=== PATIENT | male | born 1985 | race Hispanic/Latino ===

== ENCOUNTER 2018-07-27 19:34 | Emergency (ER) | payer SELFPAY ==
--- NOTE | 2018-07-27 20:28 | RAD REPORT ---
EXAM DESCRIPTION: Craig Pina (2 Views)07/27/2018 8:20 pm CLINICAL HISTORY: Chest pain COMPARISON: none FINDINGS: The lungs appear clear of acute infiltrate. The heart is normal size IMPRESSION: No acute abnormalities displayed
--- NOTE | 2018-07-27 21:30 | ER ---
Nurse's Notes [facility] Name: Philippe Bailey Age: 32 yrs Sex: Male : 1985 Arrival Date: 07/27/2018 Time: 19:35 Bed 23 Private MD: Diagnosis: Acute bronchitis Presentation: 07/27 19:39 Presenting complaint: Patient states: Left sided chest pain for the past 2 hours that aj1 does not radiate, reports that the pain is worse when he takes a deep breath, starts that the pain started shortly after he finished eating. Patient reports that he had a cough a week ago but now the cough is gone. Reports SOB. Denies palpitations, nausea, light-headedness. Transition of care: patient was not received from another setting of care. Onset of symptoms was July 27, 2018 at 17:45. Risk Assessment: Do you want to hurt yourself or someone else? Patient reports no desire to harm self or others. Initial Sepsis Screen: Does the patient meet any 2 criteria? No. Patient's initial sepsis screen is negative. Does the patient have a suspected source of infection? No. Patient's initial sepsis screen is negative. Care prior to arrival: None. 19:39 Method Of Arrival: Ambulatory aj1 19:39 Acuity: ARTHUR 3 aj1 Triage Assessment: 19:43 General: Appears in no apparent distress. uncomfortable, Behavior is calm, cooperative, aj1 appropriate for age. Pain: Complains of pain in anterior aspect of left upper chest Pain does not radiate. Pain currently is 9 out of 10 on a pain scale. Pain began 2 hours ago. Aggravated by deep breathing. EENT: No signs and/or symptoms were reported regarding the EENT system. Neuro: Level of Consciousness is awake, alert, obeys commands, Oriented to person, place, time, situation. Cardiovascular: Reports chest pain, shortness of breath, Patient's skin is warm and dry. Respiratory: Airway is patent Respiratory effort is even, unlabored, Respiratory pattern is regular, symmetrical. Historical: - Allergies: 19:43 PENICILLINS; aj1 - Home Meds: 19:43 None [Active]; aj1 - PMHx: 19:43 None; aj1 - PSHx: 19:43 hand surgery; aj1 - Immunization history:: Flu vaccine is not up to date. - Social history:: Smoking status: Patient uses tobacco products, smokes one pack cigarettes per day. - Ebola Screening: : Patient denies travel to an Ebola-affected area in the 21 days before illness onset. Screenin:53 Abuse screen: Denies threats or abuse. Nutritional screening: No deficits noted. la1 Tuberculosis screening: No symptoms or risk factors identified. Fall Risk None identified. Assessment: 19:52 General: Appears in no apparent distress. Behavior is calm, cooperative. Pain: la1 Complains of pain in anterior aspect of left upper chest. Neuro: Level of Consciousness is awake, alert, obeys commands, Oriented to person, place, time, situation. Cardiovascular: Capillary refill < 3 seconds Patient's skin is warm and dry. Cardiovascular: Heart tones S1 S2 present. Respiratory: Airway is patent Respiratory effort is even, unlabored, Respiratory pattern is regular, symmetrical, Breath sounds are clear bilaterally. GI: No signs and/or symptoms were reported involving the gastrointestinal system. : No signs and/or symptoms were reported regarding the genitourinary system. 20:55 Reassessment: Patient appears in no apparent distress at this time. No changes from la1 previously documented assessment. Patient and/or family updated on plan of care and expected duration. Pain level reassessed. 21:42 Reassessment: Patient appears in no apparent distress at this time. No changes from la1 previously documented assessment. Patient and/or family updated on plan of care and expected duration. Pain level reassessed. Vital Signs: 19:43 BP 131 / 93; Pulse 95; Resp 18; Temp 98.5(TE); Pulse Ox 98% on R/A; Weight 72.57 kg aj1 (R); Height 5 ft. 9 in. (175.26 cm) (R); Pain 9/10; 21:42 BP 144 / 74; Pulse 84; Resp 16; Pulse Ox 98% on R/A; la1 19:43 Body Mass Index 23.63 (72.57 kg, 175.26 cm) aj1 ED Course: 19:35 Patient arrived in ED. am2 19:42 Kevin Ramos, RN is Primary Nurse. la1 19:42 Triage completed. aj1 19:43 Arm band placed on Patient placed in an exam room. aj1 19:53 No provider procedures requiring assistance completed. Inserted saline lock: 18 gauge la1 in right forearm, using aseptic technique. Blood collected. Patient maintains SpO2 saturation greater than 95% on room air. 19:54 Reinaldo Shafer MD is Attending Physician. 19:54 Placed in gown. Bed in low position. Call light in reach. gambling monitor on. Pulse ox la1 on. NIBP on. 20:20 XRAY Chest Pa And Lat (2 Views) In Process Unspecified. EDMS 21:42 IV discontinued, intact, bleeding controlled, No redness/swelling at site. Pressure la1 dressing applied. Administered Medications: No medications were administered Outcome: 21:30 Discharge ordered by . 21:42 Discharged to home ambulatory. la1 21:42 Condition: stable 21:42 Discharge instructions given to patient, Instructed on discharge instructions, follow up and referral plans. medication usage. 21:42 Patient left the ED. la1 Signatures: Dispatcher [employer] EDMS Altagracia Mclean RN RN aj1 Kevin Ramos RN RN la1 Melonie Renee [facility] Reinaldo Shafer MD MD
--- NOTE | 2018-07-27 21:31 | EDPHYS ---
Physician Documentation [facility] Name: Philippe Bailey Age: 32 yrs Sex: Male : 1985 Arrival Date: 07/27/2018 Time: 19:35 Bed 23 Private MD: ED Physician Reinaldo Shafer HPI: 07/27 21:24 This 32 yrs old Male presents to ER via Ambulatory with complaints of Chest gs Pain. 21:24 The patient or guardian reports chest pain that is located primarily in the anterior gs chest wall. The pain does not radiate. Associated signs and symptoms: Pertinent negatives: diaphoresis, nausea, shortness of breath, syncope, vomiting. The chest pain is described as sharp. Duration: The patient or guardian reports multiple episodes, that are intermittent, that wax and wane, with no pattern. Modifying factors: the symptoms are aggravated by breathing, cough. Severity of pain: At its worst the pain was moderate in the emergency department the pain has improved mildly. The patient has experienced similar episodes in the past, a few times. Historical: - Allergies: 19:43 PENICILLINS; aj1 - Home Meds: 19:43 None [Active]; aj1 - PMHx: 19:43 None; aj1 - PSHx: 19:43 hand surgery; aj1 - Immunization history:: Flu vaccine is not up to date. - Social history:: Smoking status: Patient uses tobacco products, smokes one pack cigarettes per day. - Ebola Screening: : Patient denies travel to an Ebola-affected area in the 21 days before illness onset. ROS: 21:24 Respiratory: Positive for cough. gs 21:24 All other systems are negative. Exam: 21:24 Head/Face: Normocephalic, atraumatic. Eyes: Pupils equal round and reactive to light, gs extra-ocular motions intact. Lids and lashes normal. Conjunctiva and sclera are non-icteric and not injected. Cornea within normal limits. Periorbital areas with no swelling, redness, or edema. ENT: Nares patent. No nasal discharge, no septal abnormalities noted. Tympanic membranes are normal and external auditory canals are clear. Oropharynx with no redness, swelling, or masses, exudates, or evidence of obstruction, uvula midline. Mucous membranes moist. Neck: Trachea midline, no thyromegaly or masses palpated, and no cervical lymphadenopathy. Supple, full range of motion without nuchal rigidity, or vertebral point tenderness. No Meningismus. Chest/axilla: Normal chest wall appearance and motion. Nontender with no deformity. No lesions are appreciated. Cardiovascular: Regular rate and rhythm with a normal S1 and S2. No gallops, murmurs, or rubs. Normal PMI, no JVD. No pulse deficits. Respiratory: Lungs have equal breath sounds bilaterally, clear to auscultation and percussion. No rales, rhonchi or wheezes noted. No increased work of breathing, no retractions or nasal flaring. Abdomen/GI: Soft, non-tender, with normal bowel sounds. No distension or tympany. No guarding or rebound. No evidence of tenderness throughout. Back: No spinal tenderness. No costovertebral tenderness. Full range of motion. Skin: Warm, dry with normal turgor. Normal color with no rashes, no lesions, and no evidence of cellulitis. MS/ Extremity: Pulses equal, no cyanosis. Neurovascular intact. Full, normal range of motion. Neuro: Awake and alert, GCS 15, oriented to person, place, time, and situation. Cranial nerves II-XII grossly intact. Motor strength 5/5 in all extremities. Sensory grossly intact. Cerebellar exam normal. Normal gait. 21:24 Constitutional: The patient appears alert, awake. 21:24 ECG was reviewed by the Attending Physician. Vital Signs: 19:43 BP 131 / 93; Pulse 95; Resp 18; Temp 98.5(TE); Pulse Ox 98% on R/A; Weight 72.57 kg [facility] (R); Height 5 ft. 9 in. (175.26 cm) (R); Pain 9/10; 21:42 BP 144 / 74; Pulse 84; Resp 16; Pulse Ox 98% on R/A; la1 19:43 Body Mass Index 23.63 (72.57 kg, 175.26 cm) [facility] MDM: 21:22 Patient medically screened. gs 21:24 Differential diagnosis: chest wall pain, pleurisy, pneumonia. Data reviewed: vital gs signs, nurses notes. Counseling: I had a detailed discussion with the patient and/or guardian regarding: the historical points, exam findings, and any diagnostic results supporting the discharge/admit diagnosis, radiology results, the need for outpatient follow up. 21:31 Counseling: I had a detailed discussion with the patient and/or guardian regarding: the gs presence of at least one elevated blood pressure reading (>120/80) during this emergency department visit. Counseling: I had a detailed discussion with the patient and/or guardian regarding: smoking cessation. Special discussion: I have referred the patient to see his PCP for further evaluation of high blood pressure. 07/27 20:03 Order name: XRAY Chest Pa And Lat (2 Views); Complete Time: 20:30 gs 07/27 20:03 Order name: EKG - Nurse/Tech; Complete Time: 20:06 gs EC:24 Rate is 87 beats/min. Rhythm is regular. QRS [place] is Normal. QRS interval is normal. QT gs interval is normal. T waves are Normal. No ST changes noted. Clinical impression: Normal ECG. Interpreted by me. Administered Medications: No medications were administered Disposition: 07/27/18 21:30 Discharged to Home. Impression: Acute bronchitis. - Condition is Stable. - Discharge Instructions: Acute Bronchitis, Adult, Steps to Quit Smoking, Managing Your Hypertension. - Prescriptions for Prednisone 20 mg Oral Tablet - take 1 tablet by ORAL route once daily for 5 days; 5 tablet. Albuterol Sulfate 90 mcg/actuation - inhale 1-2 puff by INHALATION route every 4-6 hours; 1 Inhaler. - Medication Reconciliation Form, Thank You Letter, Antibiotic Education, Prescription Opioid Use form. - Follow up: Private Physician; When: 2 - 3 days; Reason: Re-evaluation by your physician. Signatures: Dispatcher MedHoRUSTAltagracia Dimas RN RN aj1 Kevin Ramos RN RN la1 Reinaldo Shafer MD MD Corrections: (The following items were deleted from the chart) 21:42 21:30 07/27/2018 21:30 Discharged to Home. Impression: Acute bronchitis. Condition is la1 Stable. Forms are Medication Reconciliation Form, Thank You Letter, Antibiotic Education, Prescription Opioid Use. Follow up: Private Physician; When: 2 - 3 days; Reason: Re-evaluation by your physician. gs
--- NOTE | 2018-07-28 07:44 | EKG ---
Test Date: 2018-07-27 Test Time: 19:48:13 Imagery Analyst: LA MEASUREMENT RESULTS: Intervals: Rate: 87 ME: 154 QRSD: 88 QT: 340 QTc: 409 [place]: P: 47 ME: 154 QRS: 51 T: 16 INTERPRETIVE STATEMENTS: Normal sinus rhythm Normal ECG No previous ECG available for comparison Electronically Signed On 07-28-18 07:43:45 CDT by Sunny Burnette
== END 2018-07-27 21:42 | disposition home or self-care (01) ==
LOC: ER 19:34
DX: J20.9 Acute bronchitis, unspecified (principal); F17.210 Nicotine dependence, cigarettes, uncomplicated; Z88.0 Allergy status to penicillin
CPT/HCPCS: 71046; 93005; 99285